=== PATIENT | male | born 1945 | race Caucasian/White ===

== ENCOUNTER → 2017-04-29 | Outpatient (CLI) | payer OTHER, MEDICARE ==
[~2017-04-29] MED LIST: ADVAIR 100/501 DISK IH; ADVAIR HFA120 INHALA IH; Aspirin E.C. PO; DOCUSATE SODIU100 MG PO; IPRATR-ALBUTEROL3 ML IH; LEVAQUIN500 MG PO; LISINOPRIL-HCT1 EAC3 PO; LORATADINE10 M2 PO; LORAZEPAM1 MG PO; MELOXICAM7.5 MG PO; MILK OF MAGNESI10 ML PO; PREDNISONE10 MG PO; PROAIR HFA8.5 GM IH; SPIRIVA RESPIMAT4 GM IH
== END | disposition home or self-care (01) ==
LOC: NUC 10:39
DX: M41.85 Other forms of scoliosis, thoracolumbar region (principal); R93.7 Abnormal findings on diagnostic imaging of other parts of musculoskeletal system; R97.20 Elevated prostate specific antigen [PSA]; Z90.79 Acquired absence of other genital organ(s)
CPT/HCPCS: 78306; A9503

== ENCOUNTER 2017-10-21 15:01 | Inpatient (IN) | payer OTHER, MEDICARE ==
[~2017-10-21] VITALS: Ht 172.7 cm; Wt 90.6 kg
[2017-10-21 16:32] LABS: HEMATOCRIT 38.2 % (38.0-50.0); HEMOGLOBIN 13.1 G/DL (12.5-16.6); MCH 28.6 PG (29.0-34.0); MCHC 34.3 G/DL (30.0-36.0); MCV 83.4 FL (86-99); PLATELET COUNT 233 K/uL (156-360); RBC DIS.WIDTH-SD 39.2 % (39-53); RED BLOOD COUNT 4.58 M/uL (4.00-5.50); WHITE BLOOD COUNT 11.6 K/uL (4.1-10.2)
[2017-10-21 16:48] LABS: CHLORIDE 99 mEq/L (99-109); SODIUM 136 mEq/L (136-147)
[2017-10-21 16:50] LABS: GLUCOSE 136 mg/dL (70-99)
[2017-10-21 16:53] LABS: CREATININE 0.9 mg/dL (0.6-1.3); GFR ESTIMATE (CALCULATED) > 59 mL/min/ (58.99-99999)
[2017-10-21 16:54] LABS: UREA NITROGEN (BUN) 15 mg/dL (9-23)
[2017-10-21 16:58] LABS: TROP-I INTERPRETATION NEGATIVE; TROPONIN-I < 0.01 ng/mL (0.0-0.30)
[2017-10-21] MEDS ORDERED: CLARITIN,ALAVAR10 MG PO (17:29)
[2017-10-21] MEDS ORDERED: SPIRIVA RESPIMAT4 GM IH (17:30)
[2017-10-21] MEDS ORDERED: PROAIR HFA8.5 GM IH (17:30)
[2017-10-21] MEDS ORDERED: DUONEB 2.5-0.5 M3 ML AEROSOL (17:30)
[2017-10-21] MEDS ORDERED: TYLENOL EXTRA500 MG PO (17:31)
[2017-10-21] MEDS ORDERED: ADVAIR HFA120 INHALA IH (17:31)
[2017-10-21] MEDS ORDERED: VITAMIN D31000 UNIT PO (17:32)
[2017-10-21 21:29] VITALS: BP 169/80
[2017-10-21 23:46] VITALS: BP 151/72
[2017-10-22 03:15] VITALS: BP 117/58
[2017-10-22 06:52] LABS: HEMATOCRIT 39.1 % (38.0-50.0); HEMOGLOBIN 13.1 G/DL (12.5-16.6); MCH 28.3 PG (29.0-34.0); MCHC 33.5 G/DL (30.0-36.0); MCV 84.4 FL (86-99); PLATELET COUNT 243 K/uL (156-360); RBC DIS.WIDTH-CV 12.9 % (11.8-14.6); RBC DIS.WIDTH-SD 39.6 % (39-53); RED BLOOD COUNT 4.63 M/uL (4.00-5.50); WHITE BLOOD COUNT 7.8 K/uL (4.1-10.2)
[2017-10-22 07:17] LABS: CHLORIDE 99 MEQ/L (99-109); CREATININE 0.8 MG/DL (0.6-1.3); GFR ESTIMATE (CALCULATED) > 59 mL/min/ (58.99-99999); GLUCOSE 156 mg/dL (70-99); POTASSIUM 4.7 MEQ/L (3.7-5.4); SODIUM 138 MEQ/L (136-147); UREA NITROGEN (BUN) 13 mg/dL (9-23)
[2017-10-22 07:30] VITALS: BP 123/62
[2017-10-22 11:00] VITALS: BP 135/66
[2017-10-22 15:00] VITALS: BP 145/65
[2017-10-22 19:17] VITALS: BP 147/70
[2017-10-22 23:42] VITALS: BP 130/79
[2017-10-23 07:24] VITALS: BP 142/75
[2017-10-23 17:02] VITALS: BP 142/68
[2017-10-24] VITALS: BP 135/63
[2017-10-24 07:25] VITALS: BP 136/65
[2017-10-24 15:00] VITALS: BP 134/67
[2017-10-25 00:01] VITALS: BP 138/83
[2017-10-25 07:10] LABS: HEMATOCRIT 38.4 % (38.0-50.0); HEMOGLOBIN 12.4 G/DL (12.5-16.6); MCH 28.1 PG (29.0-34.0); MCHC 32.3 G/DL (30.0-36.0); MCV 86.9 FL (86-99); PLATELET COUNT 268 K/uL (156-360); RBC DIS.WIDTH-CV 13.2 % (11.8-14.6); RBC DIS.WIDTH-SD 41.5 % (39-53); RED BLOOD COUNT 4.42 M/uL (4.00-5.50); WHITE BLOOD COUNT 13.4 K/uL (4.1-10.2)
[2017-10-25 07:39] LABS: ALBUMIN 3.2 G/DL (3.2-4.8); ALKALINE PHOSPHATASE 41 IU/L (3-129); ALT (GPT) 30 IU/L (3-49); AST (GOT) 22 IU/L (2-34); CHLORIDE 102 MEQ/L (99-109); CREATININE 0.9 MG/DL (0.6-1.3); GFR ESTIMATE (CALCULATED) > 59 mL/min/ (58.99-99999); GLUCOSE 137 mg/dL (70-99); POTASSIUM 4.7 MEQ/L (3.7-5.4); SODIUM 143 MEQ/L (136-147); TOTAL BILIRUBIN 0.3 MG/DL (0.0-1.0); TOTAL PROTEIN 5.5 G/DL (6.4-8.3)
[2017-10-25 07:43] LABS: UREA NITROGEN (BUN) 21 mg/dL (9-23)
[2017-10-25 07:55] VITALS: BP 152/77
[2017-10-25 11:00] VITALS: BP 162/77
[2017-10-25] MEDS ORDERED: VITAMIN D31000 UNI2 PO (12:00)
[2017-10-25] MEDS ORDERED: PREDNISONE10 MG PO (12:02)
[2017-10-25] MEDS ORDERED: Ocean Nasal 0.65% BOTH NARES (12:03)
== END 2017-10-25 16:10 | disposition home or self-care (01) | DRG 192 ==
LOC: EME 15:01 → 5EAST 17:20 → EDOF 17:20 → ENRESERV 17:28 → 5EAST 21:01
PROVIDERS: Emergency Medicine; Family Medicine; Internal Medicine
DX: J44.1 Chronic obstructive pulmonary disease with (acute) exacerbation (principal); J44.0 Chronic obstructive pulmonary disease with (acute) lower respiratory infection; R09.02 Hypoxemia; J84.10 Pulmonary fibrosis, unspecified; J20.9 Acute bronchitis, unspecified; M19.90 Unspecified osteoarthritis, unspecified site; E78.5 Hyperlipidemia, unspecified; I10 Essential (primary) hypertension; F41.9 Anxiety disorder, unspecified; Z87.891 Personal history of nicotine dependence; Z85.46 Personal history of malignant neoplasm of prostate
CPT/HCPCS: 71046; 80048; 80053; 84484; 85027; 93005; 94640; 94640 76; 94667; 94760; 94799; 99202; 99281; 99285; J0456; J0696; J1644; J1940; J2930; J7644